=== PATIENT | male | born 1985 | race Caucasian/White ===

== ENCOUNTER 2018-12-28 20:46 | Emergency (ER) | payer BC ==
[2018-12-28] MEDS: KETOROLAC 30 MG INJ IM (21:08)
[2018-12-28] MEDS: OXYCODONE/ACETAMINOPHEN (5/325) TAB PO (21:08)
== END 2018-12-28 22:27 | disposition home or self-care (01) ==
LOC: E/R 20:46
DX: S46.011A Strain of muscle(s) and tendon(s) of the rotator cuff of right shoulder, initial encounter (principal); W18.39XA Other fall on same level, initial encounter; Y92.328 Other athletic field as the place of occurrence of the external cause
CPT/HCPCS: 29105; 71045; 73030-RT; 96372; 99284-25